=== PATIENT | male | born 1945 | race Caucasian/White ===

== ENCOUNTER 2018-02-04 12:19 | Inpatient (IN) ==
--- NOTE | 2018-02-04 09:08 | Discharge Summary ---
Date of Encounter: 02/05/18 Time of Encounter: 16:00 - Discharge Diagnosis (1) Arthritis of right shoulder region Priority: Primary Status: Chronic (2) Rotator cuff arthropathy of right shoulder Priority: Primary Status: Chronic (3) Status post reverse total arthroplasty of right shoulder Priority: Primary Status: Acute (4) HTN (hypertension) Priority: Secondary Status: Chronic Qualifiers: Hypertension type: unspecified Qualified Code(s): I10 - Essential (primary) hypertension (5) BPH (benign prostatic hyperplasia) Priority: Secondary Status: Chronic Qualifiers: Lower urinary tract symptom presence: unspecified whether lower urinary tract symptoms present Qualified Code(s): N40.0 - Benign prostatic hyperplasia without lower urinary tract symptoms (6) HLD (hyperlipidemia) Priority: Secondary Status: Chronic Qualifiers: Hyperlipidemia type: unspecified Qualified Code(s): E78.5 - Hyperlipidemia, unspecified - Hospital Course Hospital course: Mr. Mcghee is a 72 year old male POD#1 s/p Right reverse apex TSR 02/04/18 Dr. Mo Labwork and medications reviewed. Pain control: Adequate Participating in PT. All questions and concerns addressed. Educated on use of incentive spirometer, ambulation, and hydration. Patient educated on post-operative restrictions and care. Addressed: Patient with mildly elevated HR - will monitor with Tele for short while. Patient with history of appears to be anxiety upon change in circumstance. Patient on Tele showed several PVCs not noted to continue to be symptomatic. Patient to follow up with PCP in immediate future. Patient educated by nursing staff to go to ED immediately if symptoms return, chest pain or dizziness, or falls develop. D/C plan: Home with Home Health today, 02/05 - Time Spent with Patient Total time spent providing and/or coordinating discharge services: - Discharge Medications Home Medications: Ascorbate Calcium [Vitamin C] 500 mg PO DAILY 02/04/18 [History] Aspirin [Lo-Dose Aspirin EC] 81 mg PO DAILY 02/04/18 [History] Docusate Sodium [Colace] 100 mg PO BID 5 Days #10 capsule 02/04/18 [Rx] Lisinopril 2.5 mg PO DAILY 02/04/18 [History] Metoprolol [Lopressor] 25 mg PO DAILY 02/04/18 [History] Naproxen Sodium [Aleve] 220 mg PO DAILY 02/04/18 [History] OxyCODONE Immed Rel [Roxicodone 5 MG] 5 mg PO Q6HR PRN 7 Days #28 tablet 02/04/18 [Rx] Simvastatin [Zocor] 20 mg PO DAILY 02/04/18 [History] Tamsulosin [Flomax] 0.4 mg PO BID 02/04/18 [History] Allergies/Adverse Reactions: Allergy/AdvReac Type Severity Reaction Status Date / Time No Known Allergies Allergy Verified 02/04/18 13:23 Date of admission: 02/04/18 Primary care physician: Adams Ngo Discharging clinician: Khang Mo - VTE Documentation of Mechanical Device: Venous foot pump, device - Patient Status Disposition: Home Health Service Condition: Good Functional capacity at discharge: independent ambulation Overall status at discharge: patient is progressing back to baseline - Discharge Instructions Follow Up With: Khang Mo MD [Partnered Physician] - 03/06/18 5:10 pm Caren Weber PAC [Physician Superintendent House] - 02/14/18 10:00 am Additional Instructions: Discharge Instructions: Total Shoulder Please call [facility] ([phone]), your Primary Care Physician, or report to the Emergency Room if you have any of the following symptoms: Nausea, vomiting, fever greater that 101.5, swelling, chest pain, shortness of breath, increased pain/redness/drainage/odor for your incision site, numbness/tingling, or any other concerning symptoms. ACTIVITY: Always keep your arm in the sling. Do not raise your arm away from your body. Do not use your arm to help with getting in or out of bed. No weight bearing permitted. Only perform those exercises given to you by your therapist. Incentive Spirometer 10 times an hour. MEDICATIONS: Upon discharge resume your home medications. Take all the medications as prescribed. Take a stool softener if taking narcotic pain medications. Stool softeners are only effective if you drink enough fluids. Drink 6-8 glass of water or fluids a day, unless this is not allowed for another health problem. Despite using stool softeners, if you haven't had a bowel movement in 3 days, please switch to a gentle laxative. Gentle laxatives are sold over the counter. You should have a bowel movement within 24 hours, if not call the office. You will be discharged from the hospital with a prescription for pain medication. You are encouraged to decrease the use of narcotic pain medication as tolerated. Should you require a refill, please call the office. [facility] prescribes narcotic pain medication for only 4-6 weeks after surgery. If you require pain medication beyond this time period, you may be referred to your Primary Care Physician or to the Pain Clinic for further evaluation. Plan ahead for refills on pain medication as many narcotics either need to be picked up at the office or mailed. It is best to call 48-72 hours in advance of needing a prescription refill so you don't run out of medication. To help control the post-operative pain, you may take NSAIDs (Aleve,Advil, Motrin, Ibuprofen, Naprosyn) or Tylenol as prescribed on the bottle in addition to the pain medication. WOUND CARE: Leave the dressing on for 7-10 days. You may change the dressing i f it becomes saturated greater than 50%. Do not get the dressing wet at anytime. Wash your hands with antibacterial soap, rinse and dry prior to any wound care. If you have cecilia the visiting nurse or rehab facility can remove the stapes 10-14 days after surgery and place steri-strips across the wound. Leave the steri-strips in place until they fall off on their own. You may let water from the shower run on top of the steri-strips. If you do not have a visiting nurse or rehab facility, you will need to return to the office at 10-14 days for the cecilia to be removed. If you have itching or redness around the dressing call the office. FOLLOW-UP: Please follow up with your surgeon in the orthopedic clinic, as scheduled - Diet and Activity Activity: increase activity as tolerated Diet: advance to your usual diet
[2018-02-04] MEDS ORDERED: Famotidine 20 MG/2 ML VIAL IVP ONE (12:32)
[2018-02-04] MEDS ORDERED: Acetaminophen IV 1,000 MG/100 ML INFUS..BTL IVPB ONE (12:32)
[2018-02-04] MEDS ORDERED: CeFAZolin Syr 2,000MG/20 ML 2,000 MG/20 ML SYRINGE IVPB ONE (12:42)
[2018-02-04] MEDS ORDERED: Ringers Solution, Lactated 1,000 ML IVC SCH ×2 (12:45→17:16)
--- NOTE | 2018-02-04 12:52 | History & Physical Report ---
Date of Encounter: 02/04/18 Time of Encounter: 12:52 24 Hour HP Update - Instructions Instructions: If the History and Physical is less than 30 days old and was completed prior to A.M. admission and or procedure and has NOT been updated on calendar day of procedure please complete this update prior to performing procedure. - Update Patient reports changes in Medical Condition: No Changes in examination, assessment, or condition: No Changes in Medication: No Preop tests/diagnostics Reviewed: Yes Surgery Remains Indicated: Yes Consent for Planned Operative Procedure(s) Verified: Yes - Pre-Operative Checklist Preoperative Checklist Indicated: No Prophylactic Antibiotic Ordered: Yes Is VTE Prophylaxis Indicated?: Yes
[2018-02-04] MEDS ORDERED: Lidocaine -MPF 2% 2 ML VIAL ONE (13:07)
[2018-02-04] MEDS ORDERED: *HR* Succinylcholine 200 MG/10 ML VIAL IVP ONE ×2 (13:07→14:04)
[2018-02-04] MEDS ORDERED: Ondansetron 4 MG/2 ML VIAL ONE ×2 (13:07→14:04)
[2018-02-04] MEDS ORDERED: *HR* Rocuronium Bromide 50 MG/5 ML VIAL ONE (13:07)
[2018-02-04] MEDS ORDERED: Dexamethasone 4 MG/ML VIAL ONE (13:07)
[2018-02-04] MEDS ORDERED: *HR* Propofol 200 MG/20 ML VIAL IVP ONE ×3 (13:08→14:05)
[2018-02-04] MEDS ORDERED: *HR* FentaNYL (PF) 100 MCG/2 ML VIAL ONE (13:08)
[2018-02-04] MEDS ORDERED: *HR* Midazolam HCl 2 MG/2 ML VIAL ONE (13:08)
--- NOTE | 2018-02-04 13:44 | Anesthesia Evaluation PreOp ---
Date of Encounter: 02/04/18 Time of Encounter: 13:30 - Past History Planned Operation: Rt Total Shouldewr Replacement Cardiac History: HTN, Hyperlipidemia Pulmonary History: Denies Any Significant HX CORRECTIONAL SECURITY OFFICER History: Denies Any Significant HX Other Medical History: Denies Any Significant HX Anesthesia History: No Prior Anesthetic Complications Alcohol Use: none Drug use: none Medications and Allergies Ascorbate Calcium [Vitamin C] 500 mg PO DAILY 02/04/18 [History] Aspirin [Lo-Dose Aspirin EC] 81 mg PO DAILY 02/04/18 [History] Docusate Sodium [Colace] 100 mg PO BID 5 Days #10 capsule 02/04/18 [Rx] Lisinopril 2.5 mg PO DAILY 02/04/18 [History] Metoprolol [Lopressor] 25 mg PO DAILY 02/04/18 [History] Naproxen Sodium [Aleve] 220 mg PO DAILY 02/04/18 [History] OxyCODONE Immed Rel [Roxicodone 5 MG] 5 mg PO Q6HR PRN 7 Days #28 tablet 02/04/18 [Rx] Simvastatin [Zocor] 20 mg PO DAILY 02/04/18 [History] Tamsulosin [Flomax] 0.4 mg PO BID 02/04/18 [History] Allergy/AdvReac Type Severity Reaction Status Date / Time No Known Allergies Allergy Verified 02/04/18 13:23 - Meds/Allergy Pre-op Review Medications Reviewed: Yes Allergies Reviewed: Yes Beta Blockers on Current Med List: Yes (Metoprolol today 0830) Anesthesia Results - Labs Laboratory Tests 01/31/18 01/31/18 01/31/18 10:07 10:07 10:07 Hgb 15.3 Hct 42.6 Plt Count 194 PT 12.3 H INR 1.1 APTT 29.8 Sodium 140 Potassium 3.9 BUN 18 Creatinine 0.70 - Imaging EKG: report reviewed (SR) Anesthesia Exam O2 Sat Height 1.78 m Height 1.78 m Weight 91.172 kg Weight 91.172 kg O2 Sat by Pulse Oximetry 96 Vital Signs Temp Pulse Resp BP Pulse Ox 97.5 F L 96 18 118/69 96 02/04/18 12:36 02/04/18 12:36 02/04/18 12:36 02/04/18 12:36 02/04/18 12:36 Height: 5'10 Weight: 201 lbs NPO (# of Hours): MN Pain Scale: 0 - HEENT Pupil (Motor): Pupils equal, EOMI Mallampati: III Teeth: Normal Oral Opening: Less than or equal to 3 - CORRECTIONAL SECURITY OFFICER LOC: Oriented CORRECTIONAL SECURITY OFFICER Motor: Normal RUE, Normal LUE, Normal RLE, Normal LLE, Normal Face CORRECTIONAL SECURITY OFFICER Sensory: Normal: RUE, LUE, RLE, LLE, Face - Cardiac Rhythm: Regular Murmur: None JVD: No Carotid Bruit: No - Pulmonary Breath Sounds: bilateral Clear Respiratory Effort: Symmetrical Anesthesia Assess/Plan ASA Score: 2 Level of consciousness: Cooperative, Oriented Anesthetic Plan: General, Regional Nerve Block Regional Nerve Block Plan: Supraclavicular Monitoring Plan: Standard Monitors Recovery Plan: PACU (Discussed GA, Brachial Plexus Block, agrees to proceed)
[2018-02-04] MEDS ORDERED: ROPIVACAINE HCL/PF 0.5% 30 ML VIAL ONE (13:54)
[2018-02-04] MEDS ORDERED: Bupivacaine/Clonidine Syringe 1 EACH SYRINGE ONE (13:55)
[2018-02-04] MEDS ORDERED: Ethanol\\Acetic Acid\\Na Ace\\Ben 1,000 ML IRRIG.SOLN IR ONE (13:57)
--- NOTE | 2018-02-04 14:21 | Anesthesia Procedures ---
Date of Encounter: 02/04/18 Time of Encounter: 14:10 Procedures: Anesthesia - Nerve Block Procedure Date: 02/04/18 Time: 14:10 Allergies/Adv Reactions: NKA Pre-op Diagnosis: Right shoulder rotator cuff arthropathy Surgical Procedure: Right total shoulder replacement reverse Checklist: Correct Patient Identifier, Correct procedure, History checked Correct side: Right Blood Thinner: No Monitor Applied: EKG, BP, Pulse Oximetry Supplemental Oxygen via Nasal Cannula (L/min): 2 Sedation: Versed (mg): 2 Sedation: Fentanyl (mcg): 100 Indication: Post Op Analgesia Pre-op Neuro Deficits: No Block Type: Supraclavicular, Other (SCP, ICB) Catheter placed: No Sterile Technique: Yes Ultrasound used: Yes Anatomy identified: Yes Visual spread of Local: Yes Neuro Stimulation: No Blood on Needle Aspiration: No Smooth Injection of Local: Yes Pain with Injection of Local: No Prep: Chlorhexadine Needle: 22 x 50 mm Stimuplex Local: 0.25% Bupivicaine w/Clonidine 20 mcg/cc (SCP, ICB), Ropivacaine (0.5% Ropivicaine 30ml supraclavicular), Other (Decadron 8mg) Volume (cc): 50 Number of Attempts: 1 Complications: None/effective block Vitals: Vital Signs Temperature 97.5 F L 02/04/18 12:36 Pulse Rate 96 02/04/18 12:36 Respiratory Rate 18 02/04/18 12:36 Blood Pressure 118/69 02/04/18 12:36 O2 Sat by Pulse Oximetry 96 02/04/18 12:36 Temperature 97.5 F L 02/04/18 12:36 Pulse Rate 70 02/04/18 14:00 Respiratory Rate 02/04/18 12:36 Blood Pressure 129/73 02/04/18 14:00 O2 Sat by Pulse Oximetry 98 02/04/18 14:00
[2018-02-04] MEDS ORDERED: *HR* Vasopressin 20 UNIT/ML VIAL ONE (14:30)
[2018-02-04] MEDS ORDERED: Ondansetron 4 MG/2 ML VIAL IVP ONE (15:12)
[2018-02-04] MEDS ORDERED: *HR* OxyCODONE Immed Rel 5 MG TABLET PO PRN (15:12)
--- NOTE | 2018-02-04 15:15 | Orthopedic Operative Note ---
Date of procedure: 02/04/18 Pre-op diagnosis: Left shoulder cuff tear arthropathy Post-op diagnosis: same Procedure: Procedure: Total Shoulder Replacment Reverse, left Estimated blood loss: 50 cc Hardware: Metal and polyethylene replacement: Arthrex 28, +4 , 30 mm screw glenoid baseplate, 4 locking 5.5 screw, 42+4 glenosphere, 12 apex humeral stem, poly insert 6 Exam Under anesthesia: Full motion no instability Procedural Notes: Grade 4 arthritic wear with medialization of the glenoid and humeral head. Rotator cuff tear. Operative procedure: The patient was brought to the operating room and placed on the operating room table. After general anesthesia was administered the operative shoulder was examined. Findings were noted. The patient was placed in the modified beachchair position. All pressure points were padded appropriately. And the head was stabilized in the neutral position. The operative extremity was prepped and draped in the sterile surgical fashion. The patient received IV antibiotics prior to skin incision. A standard deltopectoral approach was made to the operative shoulder. Incision was made to the skin and subcutaneous tissue,hemo stasis was obtained with Bovie cautery. Using careful blunt dissection the cephalic vein was identified and mobilized medially. The deltopectoral interval was developed and the clavipectoral fascia was incised. The subscap was released off the lesser tuberosity and tagged with #2 FiberWire suture subscap irreparable. The humerus was dislocated patient noted to have irreparable tear supraspinatus tendon, and the humeral cut was made along the anatomic neck. The patient noted to have grade 4 arthritic changes humeral head glenoid socket with significant medialization. Anterior and posterior Bankart retractors were placed to expose the glenoid. The glenoid guide was seated and the centering hole was made. It was reamed with the appropriate reamer. The 28, +4, 30 mm screw, baseplate was seated and secured with 4 locking 5.5 screw. The baseplate was irrigated and dried and the 42+4 Glenosphere was seated and secured with the Huang taper. The Huang taper was tested and found to be secure, glenosphere fixation was secondarily secured with the central screw. The humerus was redislocated and prepared with the diaphyseal reamers, followed by a broaching process up to the appropriate size 12 apex in the patient's anatomic version. The metaphyseal reamer was then utilized. Trial reduction found the shoulder to be relocatable. Trial components were removed and 12 apex stem was impacted in place in the patient's anatomic version. Trial reduction found the shoulder to be relocatable and stable with the appropriate 6 Luz. Trial component was removed and the real implant was seated and secured the shoulder was reduced. The shoulder had excellent motion and excellent stability and no evidence of dislocation. The deep tissue was irrigated with pulse irrigation. The PA close the shoulder. The deltopectoral interval was closed with a running #1 PDS suture, subcutaneous tissue was irrigated and closed with 0 PDS suture, the skin was closed with Dermabond. The patient was placed in a sterile dressing, abduction brace and extubated. The patient was then transferred to the recovery room in stable condition. Anesthesia: GETA Surgeon: Khang Mo Was there an community assistant present: Yes Slabber: Caren Weber Estimated blood loss (cc): 50 Condition: stable Disposition: PACU
--- NOTE | 2018-02-04 15:59 | Physician Discharge Referral ---
Home Health/Hosp Referral Info Transfer to: Home Health Attending Provider: - Diagnosis (1) Arthritis of right shoulder region Priority: Primary Status: Chronic (2) Rotator cuff arthropathy of right shoulder Priority: Primary Status: Chronic (3) Status post reverse total arthroplasty of right shoulder Priority: Primary Status: Acute (4) HTN (hypertension) Priority: Secondary Status: Chronic (5) BPH (benign prostatic hyperplasia) Priority: Secondary Status: Chronic (6) HLD (hyperlipidemia) Priority: Secondary Status: Chronic - Respiratory Orders Smoking Cessation: Smoking cessation has been advised. For more information, call the [place] Tobacco Quit Line at 1-828-IUZE-NOW. - Dressing/Wound Care Site: right shoulder - Diet/Nutrition Diet/Nutrition Orders: Regular - Activity Activity Orders: Up ad ruth, Ambulate, Chair, Walker Activity: List: Opsite dressing, leave intact until first post-operative visit. Zipline in place, plan to remove at post-operative day #14-16. If dressing becomes >50% saturated, contact office, remove dressing and place appropriate dressing in its place. Do not allow for dressing to get wet. Shoulder Precautions x 6 weeks. Apply cold therapy wrap 3-6x/day for 20 minutes at a time. Encourage ambulation throughout the day. Use Incentive spirometer 10x/hour. Elevate affected extremity above heart as tolerated. NWB to affected upper extremity x 6 weeks. Will remove brace at first post-operative appointment. OK to remove during PT/OT and Home exercises. Remove ABD pillow at Postoperative day #1 - Services Needed Following services are medically necessary services: Nursing, Home Health Aide, Physical Therapy, Occupational Therapy, Med Social Work - Transfer Medications Prescriptions: OxyCODONE Immed Rel [Roxicodone 5 MG] 5 mg PO Q6HR PRN 7 Days #28 tablet PRN Reason: Severe Pain Docusate Sodium [Colace] 100 mg PO BID 5 Days #10 capsule Home Medications: Ascorbate Calcium [Vitamin C] 500 mg PO DAILY 02/04/18 [History] Aspirin [Lo-Dose Aspirin EC] 81 mg PO DAILY 02/04/18 [History] Docusate Sodium [Colace] 100 mg PO BID 5 Days #10 capsule 02/04/18 [Rx] Lisinopril 2.5 mg PO DAILY 02/04/18 [History] Metoprolol [Lopressor] 25 mg PO DAILY 02/04/18 [History] Naproxen Sodium [Aleve] 220 mg PO DAILY 02/04/18 [History] OxyCODONE Immed Rel [Roxicodone 5 MG] 5 mg PO Q6HR PRN 7 Days #28 tablet 02/04/18 [Rx] Simvastatin [Zocor] 20 mg PO DAILY 02/04/18 [History] Tamsulosin [Flomax] 0.4 mg PO BID 02/04/18 [History] Allergies/Adverse Reactions: Allergy/AdvReac Type Severity Reaction Status Date / Time No Known Allergies Allergy Verified 02/04/18 13:23 Certification: Further, I certify that my clinical findings support that this patient is ho mebound (i.e. absences from home require considerable and taxing effort and are for medical reasons or cheondoism services or infrequently or short duration when for other reasons) because: Homebound Reason: Post-surgery restriction and or conditions limit ability to leave home Attestation: My signature below is to certify that this patient is under my care and that I, or nurse practitioner, or a physician resident assistant working with me, has a [id number] encounter with this patient.
--- NOTE | 2018-02-04 16:00 | Anesthesia Evaluation Post Op ---
Date of Encounter: 02/04/18 Time of Encounter: 15:59 - Vital Signs Vital Signs: Vital Signs/O2 Sat, Most Current Temp Pulse Resp BP Pulse Ox 98.7 F 69 16 104/58 93 02/04/18 15:53 02/04/18 15:53 02/04/18 15:53 02/04/18 15:53 02/04/18 15:53 - Lungs Lungs: Clear Ascult./Percussion - Airway Airway: Non-obstructed - Cardiovascular Regular Rate - Mental Status Mental Status: Alert & Oriented, Answers Appropriately - Pain Pain Scale: 0 Pain Scale used: Numeric (1 - 10) - Nausea Vomiting Nausea Vomiting: Not Present - Hydration Hydration: Ice chips, Has not voided - Discharge PostOp Status: Transfer Patient to floor
[2018-02-04] MEDS ORDERED: Sennosides 8.6 MG TABLET PO PRN (17:16)
[2018-02-04] MEDS ORDERED: traMADol 50 MG TABLET PO PRN (17:16)
[2018-02-04] MEDS ORDERED: MOM Conc 10 ML UD.LIQ PO PRN (17:16)
[2018-02-04] MEDS ORDERED: Naloxone 0.4 MG/ML INJ IVP PRN (17:16)
[2018-02-04] MEDS ORDERED: Ondansetron 4 MG/2 ML VIAL IVP PRN (17:16)
[2018-02-04] MEDS ORDERED: *HR* OxyCODONE/APAP 5/325 TABLET PO PRN (17:16)
[2018-02-04] MEDS ORDERED: Temazepam 15 MG CAPSULE PO PRN (17:16)
[2018-02-04 17:23] LABS: Hematocrit 39.7 % (37.5-50.1)
[2018-02-04] MEDS ORDERED: *HR* Enoxaparin 30 MG/0.3 ML SYRINGE SQ SCH (18:00)
[2018-02-04] MEDS: *HR* Enoxaparin 30 MG/0.3 ML SYRINGE SQ SCH (19:48)
[2018-02-05] MEDS: *HR* Enoxaparin 30 MG/0.3 ML SYRINGE SQ SCH (05:11)
[2018-02-05 06:10] LABS: Hemoglobin 14.6 g/dL (12.9-16.9)
[2018-02-05 06:35] LABS: BUN/Creatinine Ratio 24 (6-26); Blood Urea Nitrogen 16 mg/dL (8-23); Calcium 9.7 mg/dL (8.6-10.3); Carbon Dioxide 22 mEq/L (23-29); Chloride 104 mEq/L (98-107); Glucose 137 mg/dL (70-105); Osmolality,Calculated 291 (280-300); Potassium 4.1 mEq/L (3.5-5.1); Sodium 139 mEq/L (136-145); eGFR For Non-African Americans > 60 (> 60)
--- NOTE | 2018-02-05 06:38 | Orthopedics Progress Note ---
Date of Encounter: 02/05/18 Time of Encounter: 06:38 Subjective Interval history: Patient was seen this morning doing well without complaints. Afebrile vital signs stable. Operative extremity: Neurovascularly intact Dressing clean dry and intact Calves nontender Assessment and plan: Continue with postoperative care Hematocrit 42 plan for discharge today Objective Vital signs: Vital Signs Temp Pulse Resp BP Pulse Ox 02/05/18 06:28 98.2 F 91 14 144/75 93 02/05/18 03:51 98.4 F 102 16 113/66 96 02/04/18 23:30 98.3 F 75 17 112/63 94 02/04/18 19:45 98.0 F 74 119/65 94 02/04/18 19:04 98.3 F 76 17 101/59 93 02/04/18 18:21 98.0 F 72 105/66 95 02/04/18 17:26 97.6 F 73 16 100/68 95 02/04/18 16:50 101/61 02/04/18 16:48 97.1 F L 70 16 90/55 95 02/04/18 15:53 98.7 F 69 16 104/58 93 02/04/18 15:43 97.6 F 66 16 120/60 94 02/04/18 15:33 97.6 F 72 16 123/64 98 02/04/18 15:23 97.3 F L 78 16 118/60 96 02/04/18 14:00 70 129/73 98 02/04/18 12:36 97.5 F L 96 18 118/69 96 Intake and Output 02/04/18 02/04/18 02/05/18 15:59 23:59 07:59 Intake Total 150 / 150 50 / 50 Output Total 50 / 50 300 / 300 325 / 325 Balance -50 / -50 -150 / -150 -275 / -275 Intake: IV Fluids 100 / 100 Ancef 2,000 MG In 0.9 % Sodium 100 / 100 Chloride 100 ML @ 200 mls/hr IVPB Q8H [facility] Rx#:[id number] Oral 50 / 50 50 / 50 Output: Urine 300 / 300 325 / 325 Estimated Blood Loss 50 / 50 Other: # Voids 1 Weight 91.172 kg 91.1 kg Patient Weight 02/05/18 23:59 Weight 91.1 kg - Labs CBC & BMP: 02/05/18 05:27 02/05/18 05:27 Labs: Abnormal lab results Carbon Dioxide 22 mEq/L (23-29) L 02/05/18 05:27 Creatinine 0.66 mg/dL (0.70-1.30) L 02/05/18 05:27 Glucose 137 mg/dL (70-105) H 02/05/18 05:27 - VTE Documentation of Mechanical Device: Venous foot pump, device Consult Discharge Plan - Plan Referrals: Adams Ngo [Primary Care Provider] -
[2018-02-05] MEDS: *HR* OxyCODONE Immed Rel 5 MG TABLET PO PRN ×2 (07:26→11:41)
--- NOTE | 2018-02-05 08:58 | Event Note ---
Date of Encounter: 02/05/18 Time of Encounter: 08:58 PCR- POD#1 s/p Right reverse apex TSR 02/04/18 Dr. Mo PCR - Patient seen at bedside, sitting in chair in sling. Spouse at bedside. A&Ox3 Cryocuff in place Slingshot sling in place. Neurovascularly intact b/l UE. Labwork and medications reviewed. Pain control: Adequate Participating in PT. All questions and concerns addressed. Educated on use of incentive spirometer, ambulation, and hydration. Patient educated on post-operative restrictions and care. Addressed: Patient with mildly elevated HR - will monitor with Tele for short while. Patient with history of appears to be anxiety upon change in circumstance. D/C plan: Home with Home Health today, 02/05 Short CBC 02/05/18 02/04/18 Range/Units 05:27 17:04 Hgb 14.6 14.0 (12.9-16.9) g/dL Hct 42.0 39.7 (37.5-50.1) % BMP 02/05/18 Range/Units 05:27 Sodium 139 (136-145) mEq/L Potassium 4.1 (3.5-5.1) mEq/L Chloride 104 (98-107) mEq/L Carbon Dioxide 22 L (23-29) mEq/L BUN 16 (8-23) mg/dL Creatinine 0.66 L (0.70-1.30) mg/dL Glucose 137 H (70-105) mg/dL Calcium 9.7 (8.6-10.3) mg/dL Vital Signs Temp Pulse Resp BP Pulse Ox 02/05/18 10:16 97.5 F L 71 20 105/60 94 02/05/18 06:28 98.2 F 91 14 144/75 93 02/05/18 03:51 98.4 F 102 16 113/66 96 02/04/18 23:30 98.3 F 75 17 112/63 94 02/04/18 19:45 98.0 F 74 119/65 94 02/04/18 19:04 98.3 F 76 17 101/59 93 02/04/18 18:21 98.0 F 72 105/66 95 02/04/18 17:26 97.6 F 73 16 100/68 95 02/04/18 16:50 101/61 02/04/18 16:48 97.1 F L 70 16 90/55 95 02/04/18 15:53 98.7 F 69 16 104/58 93 02/04/18 15:43 97.6 F 66 16 120/60 94 02/04/18 15:33 97.6 F 72 16 123/64 98 02/04/18 15:23 97.3 F L 78 16 118/60 96 02/04/18 14:00 70 129/73 98 02/04/18 12:36 97.5 F L 96 18 118/69 96 Intake and Output 02/04/18 02/05/18 02/05/18 23:59 07:59 15:59 Intake Total 150 / 150 50 / 50 360 / 360 Output Total 300 / 300 325 / 325 Balance -150 / -150 -275 / -275 360 / 360 Intake: IV Fluids 100 / 100 Ancef 2,000 MG In 0.9 % Sodium 100 / 100 Chloride 100 ML @ 200 mls/hr IVPB Q8H [facility] Rx#:[id number] Oral 50 / 50 50 / 50 360 / 360 Output: Urine 300 / 300 325 / 325 Other: Meal Breakfast Percent of Meal Consumed 100% # Voids 1 Weight 91.1 kg Patient Weight 02/05/18 23:59 Weight 91.1 kg
[2018-02-05] MEDS ORDERED: Aspirin Enteric Coated 81 MG Tablet PO SCH (09:00)
[2018-02-05] MEDS ORDERED: Ascorbic Acid 500 MG TABLET PO SCH (09:00)
[2018-02-05 12:25] VITALS: BP 133/74
== END 2018-02-05 14:03 | disposition home health service (06) | DRG 483 ==
LOC: SAMDAY 12:19 → 3NENU 16:09
PROVIDERS: ADMIT Orthopaedic Surgery; ATTEND Orthopaedic Surgery